=== PATIENT | male | born 1970 | race Asian ===

== ENCOUNTER 2021-06-04 15:32 | Emergency (ER) | payer MEDICAID ==
[~2021-06-04] VITALS: Ht 162.6 cm; Wt 69.0 kg
[2021-06-04] MEDS ORDERED: ACET-2708 MT (16:58)
[2021-06-04] MEDS ORDERED: AMOX-424 MT (16:58)
[2021-06-04] MEDS ORDERED: ACETAMINOPHEN 325MG TABLET PO ONE (17:00)
[2021-06-04] MEDS ORDERED: AMOXICILLIN/POTASSIUM CLAVULANATE 875/125MG TAB PO ONE (17:00)
[2021-06-04 17:12] VITALS: BP 126/75
== END 2021-06-04 17:13 | disposition home or self-care (01) ==
LOC: ER 15:32
DX: H66.92 Otitis media, unspecified, left ear (principal); I10 Essential (primary) hypertension; J45.909 Unspecified asthma, uncomplicated; Z13.9 Encounter for screening, unspecified
CPT/HCPCS: 99283